=== PATIENT | male | born 1980 | race Caucasian/White ===

== ENCOUNTER 2017-08-15 10:11 | Emergency (ER) | payer OTHER ==
[2017-08-15 10:18] VITALS: BMI 42.0
--- NOTE | 2017-08-15 12:14 | PDOC ---
History of Present Illness - General History Source: Patient Exam Limitations: No Limitations - History of Present Illness Initial Comments: 08/15/17 13:27 The patient is a 36 year old male with a significant PMH of epilepsy on keppra who presents to the emergency department with abdominal pain that began at 4AM this morning. 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 The patient describes the abdominal pain as localized in the suprapubic region, nonradiating with two episodes of non- bloody, non-bilious vomiting. The patient is also complaining of pins and needles in the arms. The patient denies chest pain, shortness of breath, headache and dizziness. Denies fever, chills, diarrhea and constipation. Denies testicular pain, dysuria, frequency, urgency and hematuria. Allergies: NKA Past surgical history: None reported. Social history: No reported alcohol, drug, or cigarette use. <Mirela Up - Last Filed: 08/15/17 13:33> <Ric Bob - Last Filed: 08/15/17 16:46> - General Chief Complaint: Pain Stated Complaint: ABD PAIN Past History <Mirela Up - Last Filed: 08/15/17 13:33> - Past Medical History COPD: No Seizures: Yes - Suicide/Smoking/Psychosocial Hx Smoking History: Never smoked Have you smoked in the past 12 months: No Information on smoking cessation initiated: No Hx Alcohol Use: No Drug/Substance Use Hx: No Substance Use Type: None <Ric Bob - Last Filed: 08/15/17 16:46> - Past Medical History Allergies/Adverse Reactions: Allergies Allergy/AdvReac Type Severity Reaction Status Date / Time bee sting Allergy Severe Uncoded 08/15/17 10:13 Home Medications: Ambulatory Orders Ondansetron [Zofran Odt -] 4 mg SL TID #21 od.tablet 08/15/17 Review of Systems - Review of Systems Able to Perform ROS?: Yes Comments:: 08/15/17 13:31 ROS: A complete review of 10 out of 10 review of systems is taken and is negative apart from what is previously mentioned below and in the HPI. <Mirela Up - Last Filed: 08/15/17 13:33> *Physical Exam - Vital Signs Last Vital Signs Temp Pulse Resp BP Pulse Ox 98.0 F 94 H 18 131/76 100 08/15/17 10:15 08/15/17 10:15 08/15/17 10:15 08/15/17 10:15 08/15/17 10:15 - Physical Exam Comments: 08/15/17 13:31 Vitals: Triage vital signs reviewed General Appearance: No acute distress, well nourished, well developed Cardiac: Regular rate and rhythm, no murmurs, no rubs, no gallops Lungs: Clear to auscultation bilateral, good air movement bilaterally Abdomen: (+) Suprapubic and left lower quadrant tenderness. Soft, nondistended , normal bowel sounds. Extremities: Full range of motion to all extremities, no cyanosis, clubbing, or edema Skin: Warm and dry, no rashes or lesions, no rash, no petechiae Neuro: AOX3; Cranial Nerves 2-12 grossly intact, Strength intact to all extremities, Sensation intact to all extremities, gait normal Psych: Normal mood, normal affect <Mirela Up - Last Filed: 08/15/17 13:33> - Vital Signs Last Vital Signs Temp Pulse Resp BP Pulse Ox 98.0 F 94 H 18 131/76 100 08/15/17 10:15 08/15/17 10:15 08/15/17 10:15 08/15/17 10:15 08/15/17 10:15 <Ric Bob - Last Filed: 08/15/17 16:46> Moderate Sedation - Procedure Monitoring Vital Signs: Vital Signs Temp Pulse Resp BP Pulse Ox 98.0 F 94 H 18 131/76 100 08/15/17 10:15 08/15/17 10:15 08/15/17 10:15 08/15/17 10:15 08/15/17 10:15 <Mirela Up - Last Filed: 08/15/17 13:33> - Procedure Monitoring Vital Signs: Vital Signs Temp Pulse Resp BP Pulse Ox 98.0 F 94 H 18 131/76 100 08/15/17 10:15 08/15/17 10:15 08/15/17 10:15 08/15/17 10:15 08/15/17 10:15 <Ric Bob - Last Filed: 08/15/17 16:46> ED Treatment Course - LABORATORY CBC & Chemistry Diagram: 08/15/17 12:55 08/15/17 12:55 - ADDITIONAL ORDERS Additional order review: 08/15/17 12:55 RBC 4.85 MCV 88.7 MCHC 33.1 RDW 13.7 MPV 9.2 Neutrophils % 85.3 H Lymphocytes % 8.0 Monocytes % 5.8 Eosinophils % 0.8 Basophils % 0.1 <Mirela Up - Last Filed: 08/15/17 13:33> - LABORATORY CBC & Chemistry Diagram: 08/15/17 12:55 08/15/17 12:55 <Ric Bob - Last Filed: 08/15/17 16:46> Medical Decision Making - Medical Decision Making 08/15/17 13:33 The patient is a 36 year old male with a significant PMH of epilepsy on keppra who presents to the emergency department with abdominal pain today. 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 The patient describes the abdominal pain as localized below the umbilicus. The patient is also complaining of pins and needles in the arms. The patient denies chest pain, shortness of breath, headache and dizziness. Denies fever, chills, nausea, vomit, diarrhea and constipation. Denies testicular pain, dysuria, frequency, urgency and hematuria. <Mirela Up - Last Filed: 08/15/17 13:33> - Medical Decision Making 36 years old with lower abdominal discomfort pain and vomiting. We'll check labs CT observe and reassess. Reevaluation: No fever no elevated white blood cell count no acute findings on CAT scan Patient no longer vomiting but does feel achy. Given multiple family members with recent GI illness as I suspect that this is the same viral illness or influenza B We'll provide patient with prescription for Zofran he was advised to return to emergency department for any severe worsening lower abdominal discomfort or for any distress concerns. <Ric Bob - Last Filed: 08/15/17 16:46> *DC/Admit/Observation/Transfer - Attestations Scribe Attestion: 08/15/17 13:32 Documentation prepared by Mirela Up, acting as medical record specialist for Ric Bob MD. <Mirela Up - Last Filed: 08/15/17 13:33> - Discharge Dispostion Decision to Admit order: No <Ric Bob - Last Filed: 08/15/17 16:46> Diagnosis at time of Disposition: Abdominal pain Qualifiers: Abdominal location: generalized Qualified Code(s): R10.84 - Generalized abdominal pain - Discharge Dispostion Disposition: HOME Condition at time of disposition: Stable - Patient Instructions Printed Discharge Instructions: DI for Abdominal Pain-Adult Additional Instructions: Drink plenty of fluids. Zofran as prescribed. Return to ED for any severe worsening symptoms or for any concerns. If no vomiting for the next 24 hours okay to proceed to a bland diet. - Post Discharge Activity Forms/Work/School Notes: Back to Work
[2017-08-15] MEDS ORDERED: SODIUM CHLORIDE 0.9% 1000 ML INFUS.BAG IV ONE (12:16)
[2017-08-15] MEDS ORDERED: ONDANSETRON 4 MG/2 ML VIAL IVPUSH ONE (12:16)
[2017-08-15] MEDS ORDERED: ACETAMINOPHEN 1000 MG/100 ML VIAL (NON FORMULARY) IVPB ONE (12:16)
[2017-08-15] MEDS ORDERED: ACETAMINOPHEN INJECTION 100 ML IVPB ONE (12:44)
[2017-08-15 13:19] LABS: BASO % 0.1 % (0-2.0); EOS % 0.8 % (0-4.5); HEMOGLOBIN 14.3 GM/dL (11.7-16.9); MCH 29.4 pg (25.7-33.7); MCHC 33.1 g/dl (32.0-35.9); MEAN CELL VOLUME 88.7 fl (80-96); MEAN PLT VOLUME 9.2 fl (7.5-11.1); MONO % 5.8 % (3.8-10.2); NEUT % 85.3 % (42.8-82.8); PLATELET COUNT 228 K/MM3 (134-434); RBC 4.85 M/mm3 (4.00-5.60); RDW 13.7 % (11.9-15.9); WHITE BLOOD COUNT 8.4 K/mm3 (4.0-10.0)
[2017-08-15 14:36] LABS: ALBUMIN 3.9 g/dl (3.4-5.0); ALK PHOS 78 U/L (45-117); ANION GAP 3 (8-16); BILIRUBIN,TOTAL 0.5 mg/dL (0.2-1.0); BLOOD UREA NITROGEN 23 mg/dL (7-18); CALCIUM 8.3 mg/dL (8.5-10.1); CHLORIDE 101 mmol/L (98-107); CO2 31 mmol/L (21-32); CREATININE 1.2 mg/dL (0.7-1.3); GLUCOSE,RANDOM 104 mg/dL (74-106); LIPASE 86 U/L (73-393); POTASSIUM 4.4 mmol/L (3.5-5.1); SGOT/AST 21 U/L (15-37); SGPT/ALT 46 U/L (12-78); SODIUM 135 mmol/L (136-145); TOT PROT 7.2 g/dl (6.4-8.2)
[2017-08-15 16:52] LABS: URINE APPEARANCE CLEAR; URINE BILIRUBIN NEGATIVE (<2.0 mg/dL); URINE COLOR LTYELLOW; URINE GLUCOSE (UA) NEGATIVE (NEGATIVE); URINE KETONE NEGATIVE (NEGATIVE); URINE LEUK ESTERASE NEGATIVE (NEGATIVE); URINE NITRITE NEGATIVE (NEGATIVE); URINE PROTEIN NEGATIVE (NEGATIVE); URINE UROBILINOGEN NEGATIVE mg/dL (0.2-1.0)
[2017-08-15 17:00] VITALS: BP 124/82; PULSE 78; TEMP 98.4
== END 2017-08-15 16:45 | disposition home or self-care (01) ==
LOC: JER 10:11
DX: R10.84 Generalized abdominal pain (principal)
CPT/HCPCS: 36415; 74177-TC; 80053; 81003; 83690; 85025; 87086; 99283-25; J7030

== ENCOUNTER 2020-02-26 18:08 | Emergency (ER) | payer BC, OTHER | END 2020-02-26 20:07 | disposition home or self-care (01) | LOC: JVIRT 18:08 | DX: Z03.818 Encounter for observation for suspected exposure to other biological agents ruled out (principal) | CPT/HCPCS: C9803; G2012-GT; U0003 ==

== ENCOUNTER 2020-05-25 12:30 | Emergency (ER) | payer BC, OTHER | END 2020-05-25 12:58 | disposition home or self-care (01) | LOC: JVIRT 12:30 | DX: Z20.822 Contact with and (suspected) exposure to COVID-19 (principal) | CPT/HCPCS: C9803; G2251-GT; U0003 ==

== ENCOUNTER 2020-05-30 09:35 | Emergency (ER) | payer OTHER, BC | END 2020-05-30 09:46 | disposition home or self-care (01) | LOC: JVIRT 09:35 | DX: Z11.52 Encounter for screening for COVID-19 (principal) | CPT/HCPCS: C9803; G2251-GT; U0003 ==

== ENCOUNTER 2021-05-14 15:59 | Inpatient (IN) | payer BC, OTHER ==
[2021-05-14 16:23] VITALS: BMI 44.4
[2021-05-14 17:38] LABS: ALBUMIN 4.7 g/dl (3.4-5.0); BILIRUBIN,TOTAL 0.5 mg/dl (0.2-1); CALCIUM 9.5 mg/dl (8.5-10); CREATININE 1.1 mg/dl (0.55-1.3); TOT PROT 7.6 g/dl (6.4-8.2)
[2021-05-14 17:47] LABS: BASO % 0.5 % (0-2.0); EOS % 2.5 % (0-4.5); HEMOGLOBIN 14.7 GM/dL (11.7-16.9); LYMPH % 36.9 % (8-40); MCH 27.8 pg (25.7-33.7); MCHC 32.8 g/dl (32.0-35.9); MEAN CELL VOLUME 84.8 fl (80-96); MEAN PLT VOLUME 9.2 fl (7.5-11.1); MONO % 12.3 % (3.8-10.2); NEUT % 47.8 % (42.8-82.8); PLATELET COUNT 238 10^3/uL (134-434); RBC 5.31 M/mm3 (4.00-5.60); RDW 13.4 % (11.9-15.9)
[2021-05-14] MEDS ORDERED: morphine SULFATE 4 MG/ML VIAL ONE ×2 (20:38→21:22)
[2021-05-14] MEDS ORDERED: morphine CARPU-JECT 4 MG/1 ML DISP.SYRIN IVPUSH ONE ×2 (21:19→21:20)
[2021-05-14] MEDS ORDERED: levETIRAcetam 500 MG TABLET (FP) PO ONE (21:27)
[2021-05-15] MEDS: morphine SULFATE 4 MG/ML VIAL IVPUSH PRN ×2 (06:43→22:39)
[2021-05-15 07:24] LABS: BASO % 0.9 % (0-2.0); EOS % 0.9 % (0-4.5); HEMATOCRIT 44.2 % (35.4-49); HEMOGLOBIN 14.4 GM/dL (11.7-16.9); LYMPH % 20.7 % (8-40); MCH 27.8 pg (25.7-33.7); MCHC 32.6 g/dl (32.0-35.9); MEAN CELL VOLUME 85.4 fl (80-96); MEAN PLT VOLUME 9.3 fl (7.5-11.1); MONO % 11.1 % (3.8-10.2); NEUT % 66.4 % (42.8-82.8); PLATELET COUNT 196 10^3/uL (134-434); RBC 5.17 M/mm3 (4.00-5.60); RDW 13.8 % (11.9-15.9); WHITE BLOOD COUNT 7.5 K/mm3 (4.0-10.0)
[2021-05-15 07:36] LABS: INR 1.15 (0.83-1.09); PROTHROMBIN TIME (PATIENT) 13.2 SEC (9.7-13.0)
[2021-05-15 07:39] LABS: ACTIVATED PTT 25.6 SECONDS (25.2-36.5)
[2021-05-15 07:44] LABS: BLOOD UREA NITROGEN 20.8 mg/dL (7-18); CALCIUM 8.6 mg/dL (8.5-10.1)
[2021-05-15 07:45] LABS: MAGNESIUM 2.6 mg/dL (1.8-2.4)
[2021-05-15 07:47] LABS: CREATININE 1.1 mg/dL (0.55-1.3)
[2021-05-15] MEDS ORDERED: levETIRAcetam 500 MG TABLET (FP) PO ONE ×2 (09:45→20:55)
[2021-05-15] MEDS ORDERED: levETIRAcetam 250 MG TABLET PO ONE ×2 (09:45→20:55)
[2021-05-15] MEDS ORDERED: LEVETIRACETAM PO SCH (10:00)
[2021-05-15] MEDS ORDERED: morphine SULFATE 4 MG/ML VIAL IVPUSH PRN (22:48)
[2021-05-16] MEDS ORDERED: levETIRAcetam 500 MG TABLET (FP) PO ONE ×2 (08:43→20:08)
[2021-05-16] MEDS ORDERED: levETIRAcetam 250 MG TABLET PO ONE ×2 (08:44→20:08)
[2021-05-16 09:18] LABS: HEMATOCRIT 41.8 % (35.4-49); HEMOGLOBIN 14.2 GM/dL (11.7-16.9); MCH 28.7 pg (25.7-33.7); MCHC 33.9 g/dl (32.0-35.9); MEAN CELL VOLUME 84.8 fl (80-96); MEAN PLT VOLUME 8.8 fl (7.5-11.1); PLATELET COUNT 178 10^3/uL (134-434); RBC 4.93 M/mm3 (4.00-5.60); RDW 13.7 % (11.9-15.9); WHITE BLOOD COUNT 8.2 K/mm3 (4.0-10.0)
[2021-05-16 09:42] LABS: CALCIUM 8.8 mg/dL (8.5-10.1)
[2021-05-16 09:43] LABS: BLOOD UREA NITROGEN 19.5 mg/dL (7-18)
[2021-05-16 09:45] LABS: CREATININE 0.9 mg/dL (0.55-1.3)
[2021-05-17] MEDS ORDERED: levETIRAcetam 250 MG TABLET PO ONE (09:07)
[2021-05-17] MEDS ORDERED: levETIRAcetam 500 MG TABLET (FP) PO ONE (09:07)
[2021-05-17 15:55] VITALS: BP 129/75; PULSE 80; TEMP 98
== END 2021-05-17 16:00 | disposition home or self-care (01) | DRG 199 ==
LOC: FER 15:59 → JICU 05-15 04:09 → J8W 05-15 22:19
PROVIDERS: ADMIT Hospitalist
PROC: 0W9B00Z Drainage of Left Pleural Cavity with Drainage Device, Open Approach (ICD-10-PCS; principal; 2021-05-14)
PROC: 0WPBX0Z Removal of Drainage Device from Left Pleural Cavity, External Approach (ICD-10-PCS; 2021-05-17)
DX: J93.83 Other pneumothorax (principal); U07.1 COVID-19; G40.909 Epilepsy, unspecified, not intractable, without status epilepticus; I49.8 Other specified cardiac arrhythmias; Z95.810 Presence of automatic (implantable) cardiac defibrillator
CPT/HCPCS: 36415; 71045-TC-FY; 71046-TC-FY; 80048; 80053; 83735; 83880; 84484; 85025; 85027; 85610; 85730; 93005; 99285-25; C9803; U0003; U0005